=== PATIENT | male | born 1965 | race Caucasian/White ===

== ENCOUNTER 2023-05-26 02:34 | Emergency (ER) | payer SELFPAY ==
[~2023-05-26] VITALS: Ht 167.6 cm; Wt 64.0 kg
[2023-05-26 03:14] VITALS: BP 136/83; PULSE 56; RESP 16; TEMP 98.5; O2SAT 100
== END 2023-05-26 06:19 | disposition home or self-care (01) ==
LOC: ER 02:47
DX: R06.02 Shortness of breath (principal)
CPT/HCPCS: 99283